=== PATIENT | male | born 1990 | race Caucasian/White ===

== ENCOUNTER → 2021-03-12 | Outpatient (CLI) | payer BC ==
[~2021-03-12] MED LIST: CABERGOLINE0.5 MG PO; FAMOTIDINE40 M1 PO
[2021-03-12 09:58] LABS: BASO # 0.05 K/mm3 (0.02-0.10); EOS # 0.08 K/mm3 (0.04-0.40); HEMATOCRIT 47.8 % (42.0-52.0); HEMOGLOBIN 16.3 g/dL (13.5-18.0); LYMPH# 1.51 K/mm3 (1.50-4.00); MEAN CELL VOLUME 89 fl (78-100); MEAN CORPUSCULAR HEMOGLOBIN 30 pg (27-31); MEAN CORPUSCULAR HGB CONC 34 g/dL (33-37); MEAN PLATELET VOLUME 9.4 fl (7.4-10.4); MONO # 0.73 K/mm3 (0.20-0.80); NEU # 5.65 K/mm3 (1.40-6.50); PLATELET COUNT 206 K/mm3 (130-400); RED BLOOD COUNT 5.36 M/mm3 (4.20-5.60); RED CELL DISTRIBUTION WIDTH 12.6 % (11.5-14.5); WHITE BLOOD COUNT 8.1 K/mm3 (4.8-10.8)
[2021-03-12 10:38] LABS: ALBUMIN 4.3 g/dL (3.5-5.0)
[2021-03-12 10:39] LABS: CALCIUM 9.3 mg/dL (8.3-10.5)
[2021-03-12 10:40] LABS: TOTAL PROTEIN 7.6 g/dL (6.4-8.3)
[2021-03-12 10:42] LABS: TOTAL BILIRUBIN 0.7 mg/dL (0.2-1.2)
== END ==
LOC: LAB 09:41
PROVIDERS: Family Medicine
DX: Z00.00 Encounter for general adult medical examination without abnormal findings (principal); E78.5 Hyperlipidemia, unspecified

== ENCOUNTER 2021-03-31 16:21 | Emergency (ER) | payer BC ==
[2021-03-31] MEDS ORDERED: FAMOTIDINE40 M1 PO (16:31)
[2021-03-31] MEDS ORDERED: CABERGOLINE0.5 MG PO (16:32)
[2021-03-31 17:00] LABS: BASO # 0.05 K/mm3 (0.02-0.10); EOS # 0.08 K/mm3 (0.04-0.40); HEMATOCRIT 43.2 % (42.0-52.0); LYMPH# 1.69 K/mm3 (1.50-4.00); MEAN CELL VOLUME 89 fl (78-100); MEAN CORPUSCULAR HEMOGLOBIN 31 pg (27-31); MEAN CORPUSCULAR HGB CONC 35 g/dL (33-37); MEAN PLATELET VOLUME 9.2 fl (7.4-10.4); NEU # 5.41 K/mm3 (1.40-6.50); PLATELET COUNT 183 K/mm3 (130-400); RED BLOOD COUNT 4.85 M/mm3 (4.20-5.60); RED CELL DISTRIBUTION WIDTH 12.8 % (11.5-14.5); WHITE BLOOD COUNT 8.2 K/mm3 (4.8-10.8)
[2021-03-31 17:12] LABS: ALBUMIN 4.4 g/dL (3.5-5.0)
[2021-03-31 17:13] LABS: POTASSIUM 3.6 mmol/L (3.5-5.1); SODIUM 141 mmol/L (136-145)
[2021-03-31 17:14] LABS: CALCIUM 9.3 mg/dL (8.3-10.5)
[2021-03-31 17:15] LABS: GLUCOSE 101 mg/dL (75-110); TOTAL PROTEIN 7.7 g/dL (6.4-8.3)
[2021-03-31 17:16] LABS: CARBON DIOXIDE 24 mmol/L (22-29)
[2021-03-31 17:17] LABS: TOTAL BILIRUBIN 0.4 mg/dL (0.2-1.2)
[2021-03-31 17:20] LABS: AST-SGOT 32 U/L (5-34)
[2021-03-31 17:21] LABS: ALT/SGPT 59 U/L (0-55)
[2021-03-31 17:22] LABS: LIPASE 15 U/L (8-78)
[2021-03-31 17:34] LABS: TROPONIN-I < 0.03 ng/mL (<0.030)
[2021-03-31 18:46] LABS: URINE APPEARANCE CLEAR; URINE BILIRUBIN NEGATIVE (NEGATIVE); URINE BLOOD NEGATIVE (NEGATIVE); URINE COLOR YELLOW; URINE GLUCOSE NEGATIVE (NEGATIVE); URINE KETONE NEGATIVE (NEGATIVE); URINE LEUKOCYTE ESTERASE TRACE (NEGATIVE); URINE NITRATE NEGATIVE (NEGATIVE); URINE PROTEIN(semi-quant) NEGATIVE (NEGATIVE); URINE UROBILINOGEN NORMAL (NORMAL); URINE WBC 0 /hpf (0-3)
[2021-03-31 18:56] VITALS: BP 154/113
== END 2021-03-31 18:57 | disposition home or self-care (01) ==
LOC: ED 16:21
PROVIDERS: Physician Assistant
DX: R05.9 Cough, unspecified (principal)
CPT/HCPCS: J1885

== ENCOUNTER 2021-11-22 18:48 | Emergency (ER) | payer BC ==
[~2021-11-22] VITALS: Ht 175.3 cm; Wt 126.4 kg
[2021-11-22 19:49] LABS: ALBUMIN 4.3 g/dL (3.5-5.0); POTASSIUM 3.7 mmol/L (3.5-5.1); SODIUM 141 mmol/L (136-145)
[2021-11-22 19:50] LABS: CALCIUM 9.4 mg/dL (8.3-10.5)
[2021-11-22 19:51] LABS: GLUCOSE 99 mg/dL (75-110); TOTAL PROTEIN 7.3 g/dL (6.4-8.3)
[2021-11-22 19:52] LABS: CARBON DIOXIDE 24 mmol/L (22-29)
[2021-11-22 19:53] LABS: TOTAL BILIRUBIN 0.6 mg/dL (0.2-1.2)
[2021-11-22 19:57] LABS: AST-SGOT 28 U/L (5-34)
[2021-11-22 19:58] LABS: ALT/SGPT 39 U/L (0-55); LIPASE 13 U/L (8-78)
[2021-11-22 19:59] LABS: BASO # 0.05 K/mm3 (0.02-0.10); EOS # 0.07 K/mm3 (0.04-0.40); EOS % 0.9 % (0.0-4.0); HEMATOCRIT 42.5 % (42.0-52.0); HEMOGLOBIN 14.7 g/dL (13.5-18.0); LYMPH# 1.36 K/mm3 (1.50-4.00); MEAN CELL VOLUME 88 fl (78-100); MEAN CORPUSCULAR HEMOGLOBIN 30 pg (27-31); MEAN CORPUSCULAR HGB CONC 35 g/dL (33-37); MEAN PLATELET VOLUME 9.5 fl (7.4-10.4); MONO # 0.63 K/mm3 (0.20-0.80); NEU # 5.53 K/mm3 (1.40-6.50); PLATELET COUNT 191 K/mm3 (130-400); RED BLOOD COUNT 4.84 M/mm3 (4.20-5.60); RED CELL DISTRIBUTION WIDTH 12.5 % (11.5-14.5); WHITE BLOOD COUNT 7.7 K/mm3 (4.8-10.8)
[2021-11-22 20:08] LABS: URINE APPEARANCE CLEAR; URINE BILIRUBIN NEGATIVE (NEGATIVE); URINE BLOOD NEGATIVE (NEGATIVE); URINE COLOR YELLOW; URINE GLUCOSE NEGATIVE (NEGATIVE); URINE KETONE NEGATIVE (NEGATIVE); URINE LEUKOCYTE ESTERASE NEGATIVE (NEGATIVE); URINE MUCUS PRESENT (NOT PRESENT); URINE NITRATE NEGATIVE (NEGATIVE); URINE PROTEIN(semi-quant) NEGATIVE (NEGATIVE); URINE UROBILINOGEN NORMAL (NORMAL); URINE WBC 0 /hpf (0-3)
[2021-11-22 20:11] LABS: PARTIAL THROMBOPLASTIN TIME 21.6 SECONDS (21.0-32.0); PROTHROMBIN TIME 10.3 SECONDS (9.0-12.0)
[2021-11-22 20:13] LABS: TROPONIN-I < 0.030 ng/mL (<0.030)
[2021-11-22 21:01] VITALS: BP 122/95
== END 2021-11-22 21:11 | disposition home or self-care (01) ==
LOC: ED 18:48
PROVIDERS: Nurse Practitioner
DX: I10 Essential (primary) hypertension (principal); Z87.891 Personal history of nicotine dependence; Z20.822 Contact with and (suspected) exposure to COVID-19; Z28.310 Unvaccinated for COVID-19